=== PATIENT | female | born 1955 | race Caucasian/White ===

== ENCOUNTER 2016-02-21 08:50 | Emergency (ER) | payer OTHER ==
[~2016-02-21] VITALS: Ht 167.6 cm; Wt 78.2 kg
[~2016-02-21 08:50] MED LIST: ASPI81TA3 PO; CITA10TA14 PO; CLON0.1T14 PO; DXM4T PO; FISH PO; GLUCOSAMINE PO; METO25T PO; NAPR220T2 PO; OMEP20TA86 PO; PER5A PO; PROM12.510 PO; SERT25TA2 PO; ZLP10T PO
[2016-02-21 09:01] VITALS: BP 138/83; PULSE 61; RESP 18; O2SAT 96
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
--- NOTE | 2016-02-21 10:14 | DRSVH ---
PROCEDURE: X-RAY LEFT KNEE, ONE OR TWO VIEWS ([id number]) INDICATIONS: 60 year-old female with left knee pain after fall 2 days ago. TECHNIQUE: 2 views of the knee were acquired. COMPARISON: [facility], CR, KNEE 1 OR 2VW (LT), 06/09/2015, 13:53. [facility], , KNEE SERIES LT, 07/30/2014, 11:50. FINDINGS: Bones: No acute fractures or dislocations. Femoral intramedullary paras and medial femoral condylar f ixation screw are again noted. 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 No suspicious bony lesions. Soft tissues: No joint effusion. No suspicious soft tissue calcifications. IMPRESSION: 1. No acute bony injuries of the left knee. 2. No interval change in appearance of chronic posttraumatic deformity of the medial knee joint and d istal femur, with sequelae of remote medial collateral ligament injury. Dictated by: Carlo Barrett M.D. on 02/21/2016 at 10:12 Approved by: Carlo Barrett M.D. on 02/21/2016 at 10:12
== END 2016-02-21 10:39 | disposition home or self-care (01) ==
LOC: SED 08:50
DX: M25.562 Pain in left knee (principal); W01.0XXA Fall on same level from slipping, tripping and stumbling without subsequent striking against object, initial encounter; Y93.89 Activity, other specified; Y92.89 Other specified places as the place of occurrence of the external cause; Y99.8 Other external cause status; I10 Essential (primary) hypertension; J44.9 Chronic obstructive pulmonary disease, unspecified; Z87.828 Personal history of other (healed) physical injury and trauma; Z87.891 Personal history of nicotine dependence; Z88.1 Allergy status to other antibiotic agents; Z88.2 Allergy status to sulfonamides; Z88.5 Allergy status to narcotic agent